=== PATIENT | female | born 1980 | race Caucasian/White ===

== ENCOUNTER 2016-12-26 20:37 | Emergency (ER) | payer SELFPAY ==
[2016-12-26] MEDS ORDERED: HYDROCODONE/ACETAMINOPHEN 5-325 MG TABLET PO ONE (21:53)
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
[2016-12-26] MEDS ORDERED: HYDROCODONE/ACETAMINOPHEN 5-325 MG 6 TAB/DSPK PO PRN (22:40)
[2016-12-26 22:50] VITALS: BP 98/60
== END 2016-12-26 22:51 | disposition home or self-care (01) ==
LOC: ER 20:37
DX: R68.84 Jaw pain (principal); R22.0 Localized swelling, mass and lump, head; Y04.2XXA Assault by strike against or bumped into by another person, initial encounter; Y92.818 Other transport vehicle as the place of occurrence of the external cause
CPT/HCPCS: 70150; 99284

== ENCOUNTER 2017-05-23 09:59 | Emergency (ER) | payer SELFPAY ==
[2017-05-23] MEDS ORDERED: NORMAL SALINE 1000 ML 1,000 ML IV ONE (10:18)
[2017-05-23] MEDS ORDERED: METOCLOPRAMIDE HCL INJ/PF 10 MG/2 ML SDV IV ONE (10:18)
--- NOTE | 2017-05-23 10:20 | ER Document Report ---
ED Medical Screen (RME) - General Chief Complaint: Vag Bleeding, +preg <12wks Stated Complaint: VAGINAL BLEEDING Time Seen by Provider: 05/23/17 10:17 Notes: Patient states that her last menstrual period was 04/05/2017. She states she has had a positive test at home. She states starting 2 days ago she is having vaginal spotting and some mild cramping and intractable vomiting. TRAVEL OUTSIDE OF THE [place] IN LAST 30 DAYS: No - Related Data Allergies/Adverse Reactions: No Known Allergies Allergy (Verified 05/23/17 10:01) Home Medications: Current Home Medications Vit Calc,Iron,Folic [ Vitamins] 1 tab PO DAILY 05/23/17 [ History] Past Medical History - General Last Menstrual Period: 04/05/17 - Social History Frequency of alcohol use: None Drug Abuse: None Renal/ Medical History: Reports: Hx Kidney Stones. Denies: Hx Peritoneal Dialysis Past Surgical History: Reports: Hx Kidney (Renal Surgery) - stones - Immunizations Hx Diphtheria, Pertussis, Tetanus Vaccination: Yes Physical Exam - Vital signs Vitals: Temp Pulse Resp BP Pulse Ox 98.2 F 103 H 14 123/75 100 05/23/17 10:05 05/23/17 10:05 05/23/17 10:05 05/23/17 10:05 05/23/17 10:05 Course - Vital Signs Vital signs: Temp Pulse Resp BP Pulse Ox 98.2 F 103 H 14 123/75 100 05/23/17 10:05 05/23/17 10:05 05/23/17 10:05 05/23/17 10:05 05/23/17 10:05
[2017-05-23 10:52] LABS: APPEARANCE,URINE SLIGHTLY-CLOUDY; BILIRUBIN,URINE NEGATIVE (NEGATIVE); GLUCOSE, URINE NEGATIVE (NEGATIVE); KETONES,URINE 80 mg/dL (NEGATIVE); LEUKOCYTE ESTERASE,URINE NEGATIVE (NEGATIVE); NITRITE,URINE NEGATIVE (NEGATIVE); PROTEIN,URINE 30 mg/dL (NEGATIVE); URINE SPECIFIC GRAVITY 1.025; UROBILINOGEN,URINE NEGATIVE mg/dL (<2.0)
[2017-05-23 11:11] LABS: ABSOLUTE LYMPHOCYTES (AUTO) 1.5 10^3/uL (0.5-4.7); ABSOLUTE MONOCYTES (AUTO) 0.4 10^3/uL (0.1-1.4); ABSOLUTE NEUT (AUTO) 10.2 10^3/uL (1.7-8.2); BASOPHILS % (AUTO) 0.3 % (0-2); EOSINOPHILS % (AUTO) 0.1 % (0-6); HEMATOCRIT 38.7 % (36.0-47.0); HEMOGLOBIN 12.8 g/dL (12.0-15.5); HGB HCT DIFFERENCE -0.3; LYMPHOCYTES % (AUTO) 12.2 % (13-45); MEAN CORPUSCULAR HEMOGLOBIN 30.5 pg (27.0-33.4); MEAN CORPUSCULAR HGB CONC 33.2 g/dL (32.0-36.0); MEAN CORPUSCULAR VOLUME 92 fl (80-97); RED BLOOD COUNT 4.21 10^6/uL (3.72-5.28); RED CELL DISTRIBUTION WIDTH 14.1 % (11.5-14.0); SEGMENTED NEUTROPHILS % (AUTO) 84.4 % (42-78)
[2017-05-23 11:34] LABS: ALANINE AMINOTRANSFERASE 66 U/L (9-52); ALBUMIN 4.6 g/dL (3.5-5.0); ALKALINE PHOSPHATASE 76 U/L (38-126); ANION GAP 19 (5-19); ASPARTATE AMINO TRANSFERASE 22 U/L (14-36); BILIRUBIN,DIRECT 0.2 mg/dL (0.0-0.4); BILIRUBIN,TOTAL 0.9 mg/dL (0.2-1.3); BLOOD UREA NITROGEN 17 mg/dL (7-20); CALCIUM 10.1 mg/dL (8.4-10.2); CARBON DIOXIDE 20 mmol/L (22-30); CHLORIDE 100 mmol/L (98-107); CREATININE RESULT 0.72 mg/dL (0.52-1.25); GLUCOSE 88 mg/dL (75-110); POTASSIUM 3.9 mmol/L (3.6-5.0); SODIUM 138.5 mmol/L (137-145); TOTAL PROTEIN 7.3 g/dL (6.3-8.2)
--- NOTE | 2017-05-23 11:43 | RADIOLOGY REPORT (SQ) ---
EXAM DESCRIPTION: U/S OB TRANSVAG W/DOPPLER COMPLETED DATE/TIME: 05/23/2017 11:31 am REASON FOR STUDY: +preg vag bleeding COMPARISON: None. TECHNIQUE: Transvaginal static and realtime grayscale images acquired of the pelvis. Additional bakari cted spectral and color Doppler images recorded. All images stored on PACs. bHCG: Not applicable. LIMITATIONS: None. FINDINGS: FETUS: Living intrauterine . EGA: 6 weeks 0 days ISMA: 01/16/2018 FHR: 112 beats per minute. SUBCHORIONIC BLEED: No SIZE OF BLEED: Not applicable. UTERUS: No masses. No anomalies. CERVICAL LENGTH: 3.7 cm. Closed. RIGHT ADNEXA: 3.9 x 2.8 x 2.7 cm. Normal vascular flow. There is a 2.2 x 2 x 2 cm cyst. No adnexal free fluid. No adnexal masses. LEFT ADNEXA: Left ovary not seen. No adnexal free fluid. No adnexal masses. FREE FLUID: None. OTHER: No other significant finding. IMPRESSION: LIVING INTRAUTERINE . EGA 6 weeks 0 days. Follow-up as clinically indicated. Trimester of : First - 0 to 13 weeks. TECHNICAL DOCUMENTATION: JOB ID: [id number] [employer]- All Rights Reserved
--- NOTE | 2017-05-23 12:54 | ER Document Report ---
ED General - General Chief Complaint: Vag Bleeding, +preg <12wks Stated Complaint: VAGINAL BLEEDING Time Seen by Provider: 05/23/17 10:17 TRAVEL OUTSIDE OF THE [place] IN LAST 30 DAYS: No - HPI Patient complains to provider of: Vaginal bleeding Notes: Patient coming in for vaginal bleeding. Patient is a G6 with 2 abortions 3 kids at home. Patient states vaginal bleeding light spotting over the last few days. Denies any fevers chills nausea vomiting. States lower abdominal pain and lower abdominal cramping. Patient states has not had a confirmed IUP at this time home test was positive.States multiple bouts of nausea vomiting as well. - Related Data Allergies/Adverse Reactions: No Known Allergies Allergy (Verified 05/23/17 10:01) Home Medications: Current Home Medications Vit Calc,Iron,Folic [ Vitamins] 1 tab PO DAILY 05/23/17 [ History] Past Medical History - General Last Menstrual Period: 04/05/17 - Social History Smoking Status: Current Every Day Smoker Frequency of alcohol use: None Drug Abuse: None Family History: Reviewed & Not Pertinent Patient has suicidal ideation: No Patient has homicidal ideation: No Renal/ Medical History: Reports: Hx Kidney Stones. Denies: Hx Peritoneal Dialysis Past Surgical History: Reports: Hx Kidney (Renal Surgery) - stones - Immunizations Hx Diphtheria, Pertussis, Tetanus Vaccination: Yes Hx Pneumococcal Vaccination: 06/03/10 Review of Systems - Review of Systems Constitutional: No symptoms reported EENT: No symptoms reported Cardiovascular: No symptoms reported Respiratory: No symptoms reported Gastrointestinal: No symptoms reported Genitourinary: No symptoms reported Female Genitourinary: Vaginal bleeding Musculoskeletal: No symptoms reported Skin: No symptoms reported Hematologic/Lymphatic: No symptoms reported Neurological/Psychological: No symptoms reported -: Yes All other systems reviewed and negative Physical Exam - Vital signs Vitals: Temp Pulse Resp BP Pulse Ox 98.2 F 103 H 14 123/75 100 05/23/17 10:05 05/23/17 10:05 05/23/17 10:05 05/23/17 10:05 05/23/17 10:05 Interpretation: Normal - General General appearance: Appears well, Alert - HEENT Head: Normocephalic, Atraumatic Eyes: Normal Pupils: PERRL - Respiratory Respiratory status: No respiratory distress Chest status: Nontender Breath sounds: Normal Chest palpation: Normal - Cardiovascular Rhythm: Regular Heart sounds: Normal auscultation Murmur: No - Abdominal Inspection: Normal Distension: No distension Bowel sounds: Normal Tenderness: Nontender Organomegaly: No organomegaly - Back Back: Normal, Nontender - Extremities General upper extremity: Normal inspection, Nontender, Normal color, Normal ROM , Normal temperature General lower extremity: Normal inspection, Nontender, Normal color, Normal ROM , Normal temperature, Normal weight bearing. No: Josiane's sign - Neurological Neuro grossly intact: Yes Cognition: Normal Orientation: AAOx4 Calcium Coma Scale Eye Opening: Spontaneous Paddy Coma Scale Verbal: Oriented Paddy Coma Scale Motor: Obeys Commands Calcium Coma Scale Total: 15 Speech: Normal Motor strength normal: LUE, RUE, LLE, RLE Sensory: Normal - Psychological Associated symptoms: Normal affect, Normal mood - Skin Skin Temperature: Warm Skin Moisture: Dry Skin Color: Normal Course - Re-evaluation Re-evalutation: 05/23/17 17:21 Ultrasound confirmed IUP. Patient was encouraged follow-up in 48-72 hours for repeat beta hCGs. Patient states understanding was given nausea and vomiting instructions - Vital Signs Vital signs: Temp Pulse Resp BP Pulse Ox 98.8 F 84 14 109/65 100 05/23/17 13:06 05/23/17 13:06 05/23/17 10:05 05/23/17 13:06 05/23/17 13:06 - Laboratory Result Diagrams: 05/23/17 10:47 05/23/17 10:47 Laboratory results interpreted by me: 05/23/17 05/23/17 05/23/17 10:26 10:47 10:47 WBC 12.0 H RDW 14.1 H Seg Neutrophils % 84.4 H Lymphocytes % 12.2 L Absolute Neutrophils 10.2 H Carbon Dioxide 20 L ALT 66 H Beta HCG, Quant 33235.00 H Urine Protein 30 H Urine Ketones 80 H Urine Blood MODERATE H Discharge - Discharge Clinical Impression: vaginal bleeding during , Nausea and vomiting during Condition: Poor Disposition: HOME, SELF-CARE Instructions: Bleeding During Early ([facility]), Reglan (ON LICENSE OF [facility]) Additional Instructions: Please follow-up in the next 48-72 hours for repeat blood draw. I recommended she continue to follow up with the health department or [facility]. Continue your vitamins. He may also take the Reglan provided for nausea. He may also use the other medication as below. For nausea and vomiting during I recomment: Start with 10-12.5 mg of pyridoxine (vitamin B6) three times a day for 2 days. If not fully effective, Increase to 12.5 mg of pyridoxine four times a day for 2 days. If not fully effective, Increase to 25 mg of pyridoxine three times a day for 2 days. If not fully effective, Continue 25 mg pyridoxine 3 times a day, and add 12.5 mg of doxylamine before bedtime each day for 2 days. If not fully effective, Continue 25 mg pyridoxine 3 times a day, and take 12.5 mg of doxylamine twice a day. If not fully effective, Continue 25 mg pyridoxine 3 times a day, and take 12.5 mg of doxylamine three times a day. If not fully effective, Continue 25 mg pyridoxine 3 times a day, and 12.5 mg of doxylamine 3 times a day , while adding Emetrol, one to two tablespoons (15-30 cc) taken once or twice a day as needed. (Emetrol is an [id number] mixture of sugar syrups and phosphoric acid [phosphorylated carbohydrate solution]) that acts by soothing the actual wall of the gastrointestinal tract). If not fully effective, Consult with your doctor. Prescriptions: Metoclopramide HCl [Reglan] 5 mg PO Q6 #30 tablet Forms: Follow-Up Laboratory Testing, Return to Work
[2017-05-23 13:08] VITALS: BP 109/65
== END 2017-05-23 13:08 | disposition home or self-care (01) ==
LOC: ER 09:59
DX: O46.91 Antepartum hemorrhage, unspecified, first trimester (principal); R10.30 Lower abdominal pain, unspecified; R11.2 Nausea with vomiting, unspecified; F17.200 Nicotine dependence, unspecified, uncomplicated; Z3A.00 Weeks of gestation of pregnancy not specified
CPT/HCPCS: 99284; 96361; 96374; 86900; 86901; 36415; 84702; 85025; 80053; 81001; 76817; 93976; J2765; J7030

== ENCOUNTER 2017-09-16 08:48 | Observation (INO) | payer MEDICAID ==
[2017-09-16] MEDS ORDERED: RINGERS SOLUTION,LACTATED 1,000 ML IV PRN (09:20)
[2017-09-16] MEDS ORDERED: NALBUPHINE HCL INJ 10 MG/1 ML AMPULE INJ ONE (09:20)
[2017-09-16] MEDS ORDERED: NALBUPHINE HCL INJ 10 MG/1 ML AMPULE ONE (09:25)
[2017-09-16 09:31] LABS: APPEARANCE,URINE SLIGHTLY-CLOUDY; BILIRUBIN,URINE NEGATIVE (NEGATIVE); COLOR,URINE YELLOW; GLUCOSE, URINE NEGATIVE (NEGATIVE); KETONES,URINE NEGATIVE (NEGATIVE); LEUKOCYTE ESTERASE,URINE NEGATIVE (NEGATIVE); NITRITE,URINE NEGATIVE (NEGATIVE); PROTEIN,URINE NEGATIVE (NEGATIVE); URINE SPECIFIC GRAVITY 1.012; UROBILINOGEN,URINE NEGATIVE mg/dL (<2.0)
[2017-09-16 09:45] LABS: URINE AMPHETAMINES SCREEN NEGATIVE; URINE BARBITURATES SCREEN NEGATIVE; URINE BENZODIAZEPINES SCREEN NEGATIVE; URINE COCAINE SCREEN NEGATIVE; URINE METHADONE SCREEN NEGATIVE; URINE PHENCYCLIDINE SCREEN NEGATIVE
[2017-09-16] MEDS ORDERED: ONDANSETRON HCL INJ/PF 4 MG/2 ML SDV IV ONE (09:48)
[2017-09-16] MEDS ORDERED: CEFTRIAXONE INJ 1000 MG VIAL ONE (09:50)
[2017-09-16] MEDS ORDERED: ONDANSETRON HCL INJ/PF 4 MG/2 ML SDV ONE (09:53)
[2017-09-16 09:55] LABS: URINE MARIJUANA (THC) SCREEN UNCONFIRMED POSITIVE
[2017-09-16] MEDS ORDERED: CEFTRIAXONE 1 GM/D5W RTU 1 GM/50 ML RTUPB IV SCH (10:00)
--- NOTE | 2017-09-16 10:04 | L&D Progress Notes ---
PROGRESS NOTES Datetime Report Generated by CPN: 09/16/2017 10:03 PROGRESS NOTE Comment: pt came in for pain in back since last night, hx of kidney stone and pyelo, + left flank pain, nauseated, vomiting, + FHT denies fever, no bleeding, no leaking of fluid, denies SOB, lungs clear DrCarmen Choe notified, Zofran, Rocephin, IV fluids, sono to check CL, GC and Chlamydia, CBC, Metabolic panel, Nubain 10 IV for pain, urine culture SIGNATURE SIGNATURE: [id number] Assignment: Ruth Choe MD Signature: with User ID: [email or web address] : with User ID: [email or web address]
[2017-09-16 10:22] LABS: ABSOLUTE EOSINOPHILS # (AUTO) 0.2 10^3/uL (0.0-0.6); ABSOLUTE LYMPHOCYTES (AUTO) 1.6 10^3/uL (0.5-4.7); ABSOLUTE MONOCYTES (AUTO) 0.7 10^3/uL (0.1-1.4); ABSOLUTE NEUT (AUTO) 9.2 10^3/uL (1.7-8.2); BASOPHILS % (AUTO) 0.3 % (0-2); EOSINOPHILS % (AUTO) 1.4 % (0-6); HEMATOCRIT 30.9 % (36.0-47.0); HEMOGLOBIN 10.2 g/dL (12.0-15.5); LYMPHOCYTES % (AUTO) 13.8 % (13-45); MEAN CORPUSCULAR HGB CONC 32.9 g/dL (32.0-36.0); MEAN CORPUSCULAR VOLUME 94 fl (80-97); MONOCYTES % (AUTO) 5.7 % (3-13); PLATELET COUNT 289 10^3/uL (150-450); RED BLOOD COUNT 3.28 10^6/uL (3.72-5.28); SEGMENTED NEUTROPHILS % (AUTO) 78.8 % (42-78); TOTAL CELLS COUNTED % (AUTO) 100 %; WHITE BLOOD COUNT 11.7 10^3/uL (4.0-10.5)
[2017-09-16 10:34] LABS: ALANINE AMINOTRANSFERASE 25 U/L (9-52); ALBUMIN 3.1 g/dL (3.5-5.0); ALKALINE PHOSPHATASE 67 U/L (38-126); ANION GAP 8 (5-19); ASPARTATE AMINO TRANSFERASE 14 U/L (14-36); BILIRUBIN,DIRECT 0.1 mg/dL (0.0-0.4); BILIRUBIN,TOTAL 0.2 mg/dL (0.2-1.3); BLOOD UREA NITROGEN 10 mg/dL (7-20); CALCIUM 9.1 mg/dL (8.4-10.2); CARBON DIOXIDE 23 mmol/L (22-30); CHLORIDE 108 mmol/L (98-107); GLUCOSE 118 mg/dL (75-110); POTASSIUM 4.2 mmol/L (3.6-5.0); TOTAL PROTEIN 5.7 g/dL (6.3-8.2)
[2017-09-16] MEDS ORDERED: MORPHINE SULFATE 10 MG/ML INJ IV ONE (10:35)
[2017-09-16] MEDS ORDERED: MORPHINE SULFATE 10 MG/ML INJ ONE (10:35)
[2017-09-16] MEDS ORDERED: PROMETHAZINE HCL INJ 25 MG/1 ML VIAL ONE (10:35)
[2017-09-16] MEDS ORDERED: PROMETHAZINE HCL INJ 25 MG/1 ML VIAL IV ONE (10:36)
--- NOTE | 2017-09-16 10:42 | L&D Progress Notes ---
PROGRESS NOTES Datetime Report Generated by CPN: 09/16/2017 10:42 PROGRESS NOTE Comment: C/O of pain 5/5, Dr. Choe notified, Morphine 5 and Phenergan 12.5 IV x 1, + TCH and + Opioids, took Percocet this am and BF smokes TCH WBC 11.7,m H_H 30.9/10.2 FETUS C SIGNATURE: [id number] Assignment: Ruth Choe MD Signature: with User ID: [email or web address] : with User ID: [email or web address]
--- NOTE | 2017-09-16 11:49 | RADIOLOGY REPORT (SQ) ---
EXAM DESCRIPTION: U/S OB LIMITED COMPLETED DATE/TIME: 09/16/2017 11:35 am REASON FOR STUDY: iup 23+3 abdominal cramping COMPARISON: None. TECHNIQUE: Limited transabdominal grayscale ultrasound for evaluation of specific requested obstetri diane parameters. LIMITATIONS: The cervix could not be adequately visualized with transabdominal technique. Further i maging with transvaginal probe could not be performed due to patient discomfort. FINDINGS: Cervix appears closed although cervical length could not be measured. IMPRESSION: FINDINGS ABOVE. LIMITED STUDY. TECHNICAL DOCUMENTATION: JOB ID: [id number] [employer]- All Rights Reserved Reading location - IP/workstation name: [email or web address]
--- NOTE | 2017-09-16 11:50 | RADIOLOGY REPORT (SQ) ---
EXAM DESCRIPTION: U/S RETROPERITON (RENAL/AORTA) COMPLETED DATE/TIME: 09/16/2017 11:35 am REASON FOR STUDY: iup 23.3 wks left flank pain h/o kidney stones COMPARISON: None. TECHNIQUE: Dynamic and static grayscale images acquired of the kidneys and bladder and recorded on P ACS. Additional selected color Doppler and spectral images recorded. LIMITATIONS: None. FINDINGS: RIGHT KIDNEY: Normal size. Normal echogenicity. No solid or suspicious masses. No h ydronephrosis. No calcifications. LEFT KIDNEY: Normal size. Normal echogenicity. No solid or suspicious masses. Hydronephrosis. Renal pelvis measures 14.5 mm. No calcifications. BLADDER: Not distended. OTHER FINDINGS: No other significant finding. IMPRESSION: HYDRONEPHROSIS OF THE LEFT KIDNEY. COMMENT: The degree of renal pelvicalyceal dilation is correlated with the patient's current stage o f . TECHNICAL DOCUMENTATION: JOB ID: [id number] [employer]- All Rights Reserved Reading location - IP/workstation name: [email or web address]
[2017-09-16 12:04] LABS: CHLAM PCR NOT DETECTED (NOT DETECT); GON PCR NOT DETECTED (NOT DETECT)
[2017-09-16] MEDS ORDERED: RINGERS SOLUTION,LACTATED 1,000 ML IV ONE (12:06)
--- NOTE | 2017-09-16 12:25 | PDOC H&P ---
History of Present Illness Admission Date/PCP: VICK NICHOLAS MD 09-16-17 History of Present Illness: PERCY KING is a 37 year old female who presents to labor and delivery @ 23.3 weeks with complaint of nausea and vomiting, left flank pain since 299, no leaking of fluid, no vaginal bleeding Past Medical History LMP: 04-05-17 Gynecological Infection: No Obstetrical History: none 1 Baby 1 Male Year: , Delivery: Spontaneous Vaginal Delivery 2 Spontaneous Year: Delivery: Other 3 Baby 2 Female Year: Delivery: Spontaneous Vaginal Delivery 4 Terminated Year: Delivery: Curettage - EAB 5 Male Year: Delivery: Spontaneous Vaginal Delivery 6 Spontaneous Year: Delivery: Curettage Past Surgical History Past Surgical History: Reports: Other - D&C x 2 Ureter stent removed in the Social History Information Source: Patient Lives with: Spouse/Significant other Smoking Status: Current Every Day Smoker Frequency of Alcohol Use: Occasional Hx Recreational Drug Use: Yes Drugs: Marijuana Hx Prescription Drug Abuse: No Family History Family History: Reviewed & Not Pertinent Parental Family History Reviewed: Yes Children Family History Reviewed: Yes Sibling(s) Family History Reviewed.: Yes Medication/Allergy Home Medications: Vit Calc,Iron,Folic [ Vitamins] 1 tab PO DAILY 05/23/17 Allergies/Adverse Reactions: No Known Allergies Allergy (Verified 09/16/17 09:16) Physical Exam - Physical Exam Vital Signs: Intake & Output 09/15/17 09/16/17 09/17/17 06:59 06:59 06:59 Weight 59.1 kg General appearance: PRESENT: mild distress, well-nourished Head exam: PRESENT: atraumatic, normocephalic Eye exam: PRESENT: other Ear exam: PRESENT: other Teeth exam: PRESENT: other Throat exam: PRESENT: other Neck exam: PRESENT: other Respiratory exam: PRESENT: unlabored Cardiovascular exam: PRESENT: RRR Pulses: PRESENT: other Vascular exam: PRESENT: other GI/Abdominal exam: PRESENT: soft, other Rectal exam: PRESENT: deferred Gentrourinary exam: PRESENT: other Extremities exam: PRESENT: other Musculoskeletal exam: PRESENT: ambulatory Neurological exam: PRESENT: alert, oriented to person, oriented to place Psychiatric exam: PRESENT: other Focused psych exam: PRESENT: other Skin exam: PRESENT: normal color, warm - Obstetrical Exam External Genitalia: not examined Vagina: not examined Adhexa: not examined Result Laboratory Results: 09/16/17 09:51 09/16/17 09:51 09/16/17 09/16/17 09/16/17 09:02 09:51 09:51 WBC 11.7 H RBC 3.28 L Hgb 10.2 L Hct 30.9 L MCV 94 MCH 31.0 MCHC 32.9 RDW 13.0 Plt Count 289 Seg Neutrophils % 78.8 H Lymphocytes % 13.8 Monocytes % 5.7 Eosinophils % 1.4 Basophils % 0.3 Absolute Neutrophils 9.2 H Absolute Lymphocytes 1.6 Absolute Monocytes 0.7 Absolute Eosinophils 0.2 Absolute Basophils 0.0 Sodium 139.0 Potassium 4.2 Chloride 108 H Carbon Dioxide 23 Anion Gap 8 BUN 10 Creatinine 0.57 Est GFR ( Amer) > 60 Est GFR (Non-Af Amer) > 60 Glucose 118 H Calcium 9.1 Total Bilirubin 0.2 AST 14 ALT 25 Alkaline Phosphatase 67 Total Protein 5.7 L Albumin 3.1 L Urine Color YELLOW Urine Appearance SLIGHTLY-CLOUDY Urine pH 6.0 Ur Specific [place] 1.012 Urine Protein NEGATIVE Urine Glucose (UA) NEGATIVE Urine Ketones NEGATIVE Urine Blood LARGE H Urine Nitrite NEGATIVE Ur Leukocyte Esterase NEGATIVE Urine WBC (Auto) 4 Urine RBC (Auto) >182 Impressions: Obstetrics Ultrasound 09/16/17 09:46 IMPRESSION: FINDINGS ABOVE. LIMITED STUDY. Renal Ultrasound 09/16/17 10:51 IMPRESSION: HYDRONEPHROSIS OF THE LEFT KIDNEY. Assessment & Plan - Diagnosis (1) Pyelonephritis Is this a current diagnosis for this admission?: Yes - Plan Summary Plan Summary: Seen by Dr. Nicholas Admit for observation, pain medication 23.3 weeks
[2017-09-16] MEDS: OXYCODONE-ACETAMINOPHEN 5-325 MG TABLET PO PRN ×3 (12:37→23:52)
[2017-09-16] MEDS ORDERED: OXYCODONE-ACETAMINOPHEN 5-325 MG TABLET ONE (12:38)
[2017-09-16] MEDS ORDERED: PRENATAL VITAMIN W DHA CAPSULE PO SCH (18:00)
[2017-09-17 04:52] VITALS: BP 99/58
[2017-09-17] MEDS: OXYCODONE-ACETAMINOPHEN 5-325 MG TABLET PO PRN (08:19)
--- NOTE | 2017-09-17 09:17 | PDOC PROGRESS REPORT ---
Subjective Progress Note for:: 09/17/17 Reason For Visit: Physical Exam - Physical Exam Vital Signs: Temp Pulse Resp BP Pulse Ox 98.0 F 65 18 99/58 L 96 09/17/17 04:00 09/17/17 04:00 09/17/17 04:00 09/17/17 04:00 09/17/17 04:00 Intake & Output 09/16/17 09/17/17 09/18/17 06:59 06:59 06:59 Weight 59.1 kg General appearance: PRESENT: no acute distress Respiratory exam: PRESENT: clear to auscultation mariajose - Obstetrical Exam External Genitalia: not examined Vagina: not examined Adhexa: not examined Result Laboratory Results: 09/16/17 09:51 09/16/17 09:51 09/16/17 09/16/17 09/16/17 09:02 09:51 09:51 WBC 11.7 H RBC 3.28 L Hgb 10.2 L Hct 30.9 L MCV 94 MCH 31.0 MCHC 32.9 RDW 13.0 Plt Count 289 Seg Neutrophils % 78.8 H Lymphocytes % 13.8 Monocytes % 5.7 Eosinophils % 1.4 Basophils % 0.3 Absolute Neutrophils 9.2 H Absolute Lymphocytes 1.6 Absolute Monocytes 0.7 Absolute Eosinophils 0.2 Absolute Basophils 0.0 Sodium 139.0 Potassium 4.2 Chloride 108 H Carbon Dioxide 23 Anion Gap 8 BUN 10 Creatinine 0.57 Est GFR ( Amer) > 60 Est GFR (Non-Af Amer) > 60 Glucose 118 H Calcium 9.1 Total Bilirubin 0.2 AST 14 ALT 25 Alkaline Phosphatase 67 Total Protein 5.7 L Albumin 3.1 L Urine Color YELLOW Urine Appearance SLIGHTLY-CLOUDY Urine pH 6.0 Ur Specific [place] 1.012 Urine Protein NEGATIVE Urine Glucose (UA) NEGATIVE Urine Ketones NEGATIVE Urine Blood LARGE H Urine Nitrite NEGATIVE Ur Leukocyte Esterase NEGATIVE Urine WBC (Auto) 4 Urine RBC (Auto) >182 Impressions: Obstetrics Ultrasound 09/16/17 09:46 IMPRESSION: FINDINGS ABOVE. LIMITED STUDY. Renal Ultrasound 09/16/17 10:51 IMPRESSION: HYDRONEPHROSIS OF THE LEFT KIDNEY. Assessment & Plan - Diagnosis (1) Pyelonephritis Is this a current diagnosis for this admission?: Yes - Time Time Spent with patient: 15-24 minutes Anticipated discharge: Home - Plan Summary Plan Summary: KARIME
--- NOTE | 2017-09-17 09:21 | PDOC DISCHARGE SUMMARY ---
General - Admit/Disc Date/PCP Admission Date/Primary Care Provider: 09/16/17 12:15 VICK NICHOLAS MD Discharge Date: 09/17/17 - Discharge Diagnosis (1) Pyelonephritis Is this a current diagnosis for this admission?: Yes - Additional Information Discharge Diet: As Tolerated Discharge Activity: Activity As Tolerated Home Medications: Vit Calc,Iron,Folic [ Vitamins] 1 tab PO DAILY 05/23/17 History of Present Illness Patient complains of: left flanl pain and lower abd pain History of Present Illness: PERCY KING is a 37 year old female Hospital Course Hospital Course: pt remained afebrile and US neg On day on of discharge pt is afebrile and tolerating regular diet Physical Exam - Physical Exam Vital Signs: Temp Pulse Resp BP Pulse Ox 98.0 F 65 18 99/58 L 96 09/17/17 04:00 09/17/17 04:00 09/17/17 04:00 09/17/17 04:00 09/17/17 04:00 Intake & Output 09/16/17 09/17/17 09/18/17 06:59 06:59 06:59 Weight 59.1 kg General appearance: PRESENT: no acute distress Respiratory exam: PRESENT: chest wall tenderness GI/Abdominal exam: PRESENT: soft - Obstetrical Exam External Genitalia: not examined Vagina: not examined Adhexa: not examined Result Laboratory Results: 09/16/17 09:51 09/16/17 09:51 09/16/17 09/16/17 09/16/17 09:02 09:51 09:51 WBC 11.7 H RBC 3.28 L Hgb 10.2 L Hct 30.9 L MCV 94 MCH 31.0 MCHC 32.9 RDW 13.0 Plt Count 289 Seg Neutrophils % 78.8 H Lymphocytes % 13.8 Monocytes % 5.7 Eosinophils % 1.4 Basophils % 0.3 Absolute Neutrophils 9.2 H Absolute Lymphocytes 1.6 Absolute Monocytes 0.7 Absolute Eosinophils 0.2 Absolute Basophils 0.0 Sodium 139.0 Potassium 4.2 Chloride 108 H Carbon Dioxide 23 Anion Gap 8 BUN 10 Creatinine 0.57 Est GFR ( Amer) > 60 Est GFR (Non-Af Amer) > 60 Glucose 118 H Calcium 9.1 Total Bilirubin 0.2 AST 14 ALT 25 Alkaline Phosphatase 67 Total Protein 5.7 L Albumin 3.1 L Urine Color YELLOW Urine Appearance SLIGHTLY-CLOUDY Urine pH 6.0 Ur Specific [place] 1.012 Urine Protein NEGATIVE Urine Glucose (UA) NEGATIVE Urine Ketones NEGATIVE Urine Blood LARGE H Urine Nitrite NEGATIVE Ur Leukocyte Esterase NEGATIVE Urine WBC (Auto) 4 Urine RBC (Auto) >182 Impressions: Obstetrics Ultrasound 09/16/17 09:46 IMPRESSION: FINDINGS ABOVE. LIMITED STUDY. Renal Ultrasound 09/16/17 10:51 IMPRESSION: HYDRONEPHROSIS OF THE LEFT KIDNEY. Plan Time Spent: Less than 30 Minutes
[2017-09-17] MEDS ORDERED: (PENDING PHARMACY ID) (Prenatal Vit Calc,Iron,Folic [Prenatal Vitamins] 1 TAB) PO SCH (10:00)
[2017-09-17] MEDS ORDERED: CEFTRIAXONE SODIUM 1,000 MG in NORMAL SALINE 100 ML IV SCH (10:00)
--- NOTE | 2017-09-17 13:06 | Physician Advisory Note ---
Physician Advisor ProgressNote .: Pursuant to the plan for [facility], I have reviewed the medical record for this patient. Physician Advisor Statement: Please, whenever documenting pyelo, state whether "Acute" or "Chronic", so coders can code with appropriate specificity of dx. Thanks! CK
[2017-09-24 07:11] LABS: CANNABINOID CONFIRMATION UR Positive (.)
== END 2017-09-17 10:00 | disposition home or self-care (01) ==
LOC: LC 08:48 → LR 12:15 → 2S 13:02
PROVIDERS: ADMIT Obstetrics & Gynecology; ATTEND Obstetrics & Gynecology
DX: O23.00 Infections of kidney in pregnancy, unspecified trimester (principal); O99.332 Smoking (tobacco) complicating pregnancy, second trimester; Z3A.23 23 weeks gestation of pregnancy; Z98.890 Other specified postprocedural states; Z87.442 Personal history of urinary calculi
CPT/HCPCS: 36415; 87086; 85025; 80053; 81001; 80307; 87491; 87591; 80361; 76770; 76815; G0378 ×2; G0379; G0480 ×2; J2270; J2300; J2550; J0696; J2405; J3490

== ENCOUNTER 2017-12-30 07:46 | Inpatient (IN) | payer MEDICAID ==
[2017-12-30 08:41] LABS: APPEARANCE,URINE SLIGHTLY-CLOUDY; BILIRUBIN,URINE NEGATIVE (NEGATIVE); COLOR,URINE YELLOW; GLUCOSE, URINE >=500 mg/dL (NEGATIVE); KETONES,URINE TRACE mg/dL (NEGATIVE); LEUKOCYTE ESTERASE,URINE NEGATIVE (NEGATIVE); NITRITE,URINE NEGATIVE (NEGATIVE); PROTEIN,URINE NEGATIVE (NEGATIVE); URINE SPECIFIC GRAVITY 1.027; UROBILINOGEN,URINE NEGATIVE mg/dL (<2.0)
[2017-12-30 08:54] LABS: URINE AMPHETAMINES SCREEN NEGATIVE; URINE BARBITURATES SCREEN NEGATIVE; URINE BENZODIAZEPINES SCREEN NEGATIVE; URINE COCAINE SCREEN NEGATIVE; URINE MARIJUANA (THC) SCREEN NEGATIVE; URINE METHADONE SCREEN NEGATIVE; URINE PHENCYCLIDINE SCREEN NEGATIVE
[2017-12-30] MEDS ORDERED: RINGERS SOLUTION,LACTATED 1,000 ML IV ONE (09:46)
[2017-12-30] MEDS ORDERED: PENICILLIN G POTASSIUM 5,000,000 UNIT in DEXTROSE 5%-WATER 100 ML IV ONE (11:09)
[2017-12-30] MEDS ORDERED: SUCCINYLCHOLINE CHLORIDE INJ 200 MG/10 ML VIAL ONE (11:27)
[2017-12-30] MEDS: RINGERS SOLUTION,LACTATED 1,000 ML IV PRN ×2 (11:44→23:45)
[2017-12-30] MEDS ORDERED: ONDANSETRON HCL INJ/PF 4 MG/2 ML SDV ONE (11:56)
[2017-12-30] MEDS ORDERED: LIDOCAINE 1% INJ-PF (10 MG/ML) 30 ML SDV ONE (12:14)
[2017-12-30] MEDS ORDERED: MISOPROSTOL 0.2 MG TABLET ONE ×2 (12:14→13:39)
[2017-12-30] MEDS ORDERED: OXYTOCIN/NORMAL SALINE 20 UNIT/1,000 ML RTUINJ ONE ×2 (12:14→13:38)
[2017-12-30] MEDS ORDERED: AMPICILLIN SODIUM 2 GM in NORMAL SALINE 100 ML IV ONE (12:18)
[2017-12-30] MEDS ORDERED: ONDANSETRON HCL INJ/PF 4 MG/2 ML SDV IV ONE (12:30)
[2017-12-30 12:53] LABS: HEMATOCRIT 32.3 % (36.0-47.0); HEMOGLOBIN 10.9 g/dL (12.0-15.5); MEAN CORPUSCULAR HEMOGLOBIN 30.3 pg (27.0-33.4); MEAN CORPUSCULAR HGB CONC 33.8 g/dL (32.0-36.0); MEAN CORPUSCULAR VOLUME 90 fl (80-97); PLATELET COUNT 276 10^3/uL (150-450); RED CELL DISTRIBUTION WIDTH 15.2 % (11.5-14.0); WHITE BLOOD COUNT 9.9 10^3/uL (4.0-10.5)
[2017-12-30] MEDS ORDERED: CITRIC ACID/SODIUM CITRATE ORAL SOLN 15 ML UDCUP ONE (13:25)
[2017-12-30] MEDS ORDERED: CEFAZOLIN 2 GM/D5W RTU 0 GM/0 ML RTUPB IV ONE (13:25)
[2017-12-30 13:26] LABS: CHLAM PCR NOT DETECTED (NOT DETECT); GON PCR NOT DETECTED (NOT DETECT)
[2017-12-30] MEDS ORDERED: MIDAZOLAM 2 MG/2 ML INJ ONE (13:32)
[2017-12-30] MEDS ORDERED: FENTANYL CITRATE INJ/PF 100 MCG/2 ML AMPUL ONE ×2 (13:32→13:48)
[2017-12-30] MEDS ORDERED: PROPOFOL INJ 200 MG/20 ML VIAL IV ONE (13:32)
[2017-12-30] MEDS ORDERED: MORPHINE SULFATE 10 MG/ML INJ ONE (13:38)
[2017-12-30] MEDS ORDERED: OXYTOCIN 10 UNIT/ML VIAL ONE (13:38)
[2017-12-30] MEDS ORDERED: ACETAMINOPHEN 1,000 MG/100 ML RTUPB IV ONE (13:49)
--- NOTE | 2017-12-30 14:57 | RADIOLOGY REPORT (SQ) ---
EXAM DESCRIPTION: KUB/ABDOMEN (SINGLE VIEW) COMPLETED DATE/TIME: 12/30/2017 2:50 pm REASON FOR STUDY: no count stat c/s COMPARISON: None. NUMBER OF VIEWS: One view. TECHNIQUE: Supine radiographic image of the abdomen acquired. LIMITATIONS: None. FINDINGS: BOWEL GAS PATTERN: Normal bowel gas pattern. No dilated loops. CALCIFICATIONS: No suspicious calcifications. SOFT TISSUES: No gross mass or suggestion of organomegaly. HARDWARE: Surgical tubal ligation clips, 2 located just above the right iliac crest and 2 overlying t he left iliac crest. Catheter in the bladder. No other hardware visualized. BONES: No acute fracture. No worrisome bone lesions. OTHER: No other significant finding. IMPRESSION: NO RADIOGRAPHIC EVIDENCE FOR ACUTE ABDOMINAL DISEASE. HARDWARE DESCRIBED. TECHNICAL DOCUMENTATION: JOB ID: [id number] [employer]- All Rights Reserved Reading location - IP/workstation name: [email or web address]
[2017-12-30] MEDS ORDERED: HYDROMORPHONE HCL INJ/PF 2 MG/ML AMPULE ONE (15:14)
[2017-12-30] MEDS ORDERED: MEASLES,MUMPS&RUBELLA VACC/PF 0.5 ML VIAL SUBCUT PRN (15:18)
[2017-12-30] MEDS ORDERED: ACETAMINOPHEN 325 MG TABLET PO PRN (15:18)
[2017-12-30] MEDS: HYDROMORPHONE HCL INJ/PF 2 MG/ML AMPULE IV PRN ×4 (15:18→22:14)
[2017-12-30] MEDS ORDERED: HYDROMORPHONE HCL INJ/PF 2 MG/ML AMPULE IV PRN (15:18)
[2017-12-30] MEDS ORDERED: OXYTOCIN/NORMAL SALINE 20 UNIT/1,000 ML RTUINJ IV PRN (15:18)
[2017-12-30] MEDS ORDERED: PROMETHAZINE HCL INJ 25 MG/1 ML VIAL IV PRN (15:18)
[2017-12-30] MEDS ORDERED: DIPH/PERTUSS(ACELL)/TETANUS VAC/PF 0.5 ML SYR (>=10YO) IM PRN (15:18)
--- NOTE | 2017-12-30 15:34 | Admission Physical ---
Datetime Report Generated by CPN: 12/30/2017 15:34 CURRENT ADMISSION Hx Assessment: The History has been Reviewed and is Current Chief Complaint: Uterine Contractions Indication for Induction: Not Applicable Admit Impression : Term, Intrauterine ; Active Labor; Obstetrical Complication Admit Impression- Other: non reassuring FHT tracing Admit Plan: Admit to Unit; Initiate Labor Protocol ALLERGIES Medication Allergies: No Medication Allergies: No Known Allergies (12/30/2017) Latex: No Latex Allergies Food Allergies: NONE Environmental Allergies: NONE OBSTETRICAL HISTORY EDC: 01/10/2018 00:00 : 7 Para: 3 Term: 3 : 0 SAB: 2 IAB: 1 Ectopic: 0 Livin Cesareans: 0 VBACs: 0 Multiple Births: 0 Gestational Diabetes: No Rh Sensitization: No Incompetent Cervix: No LB: No Infertility: No ART Treatment: No Uterine Anomaly: No IUGR: No Hx Previous C/S: No Macrosomia: No Hx Loss/Stillborn: No PIH: No Hx : No Placenta Previa/Abruption: No Depression/PP Depression: No PTL/PROM: No Post Hemorrhage: No Current Procedures: Ultrasound Obstetrical History Comments: G1 1997 SAB G2 2002 boy 40 wks G3 2002 EAB G4 2004 40 wks girl G5 2005 SAB G6 2008 39 wks boy G7 current SEE RECORDS Alcohol: No Marijuana : No Cocaine: No Other Illicit Drugs: Yes Cigarettes: Current Everyday Smoker. [id number] Cigarette Frequency: 5 - 10 per day Advised to Stop: Yes MEDICAL HISTORY Diabetes: No Blood Transfusion: No Pulmonary Disease (Asthma, TB): No Breast Disease: No Hypertension: No Rotor Balancer Surgery: No Heart Disease: No Hosp/Surgery: Yes Autoimmune Disorder: No Anesthetic Complications: No Kidney Disease: Yes Abnormal Pap Smear: No Neuro/Epilepsy: No Psychiatric Disorders: No Other Medical Diseases: No Hepatitis/Liver Disease: No Significant Family History: No Varicosities/Phlebitis: No Trauma/Violence : No Thyroid Dysfunction: No Medical History Comments: KIDNEY STONES _ UTI'S STENTS IN KIDNEY INFECTIOUS HISTORY Gonorrhea: No Genital Herpes: No Chlamydia: No Tuberculosis: No Syphilis: No Hepatitis: No HIV/AIDS Exposure: No Rash or Viral Illness: No HPV: No PHYSICAL EXAM General: Normal HEENT: Deferred Neurologic: Normal Thyroid: Deferred Heart: Normal Lungs: Normal Breast: Normal Back: Normal Abdomen: Normal Genitourinary Exam: Normal Extremities: Normal DTRs: Normal Pelvic Type: Adequate Physical Exam Comments: pelvis proven to 7lbs 9oz Vital Signs: Reviewed; Within Normal Limits FETUS A EGA: 38.3 Monitoring: External US; Internal Scalp Electrode Variability: Moderate 6-25bpm Decelerations: Late; Variable FHR Category: Category II Presentation: Vertex Admit Comment: Pt is a into L_D for contractions since last night. GBS unknown. Pt. reports being out of town x 1 month. Has not been since November 21. Pt. is A positive, Rubella immune. complicated by anemia and advanced maternal age. Pt. is also an every day smoker also with low TSH on admission at [facility] and normal FT4. GBS culture obtained on admission and pending but first dose administered. Pt. with minimal cervical change but with variables and late decels so it was decided that she would be admitted. Large amount of blood noted on chux after checks and spontaneously. Pt. also reporting constant lower abdominal pain despite relaxed abdomen in between contractions. AROM with small amount of fluid and large clots and blood. IUPC and FSE placed without difficulty. Multiple position changes tried and non-reassuring heart tones continued. Decision was made at that point for patient to proceed to OR for primary and BTL (which she still desires at this point). PLANS FOR LABOR AND DELIVERY Labor and Delivery: None Pain Management: Epidural Feeding Preference: Breast Benefit of Breast Feed Discussed: Yes Circumcision: Yes INFORMED CONSENT Assignment: Cindi Snider MD Signature: with User ID: [email or web address] : with User ID: [email or web address]
[2017-12-30 16:06] LABS: ABSOLUTE EOSINOPHILS # (AUTO) 0.1 10^3/uL (0.0-0.6); ABSOLUTE LYMPHOCYTES (AUTO) 1.5 10^3/uL (0.5-4.7); ABSOLUTE NEUT (AUTO) 20.3 10^3/uL (1.7-8.2); BASOPHILS % (AUTO) 0.2 % (0-2); EOSINOPHILS % (AUTO) 0.2 % (0-6); HEMATOCRIT 34.1 % (36.0-47.0); HEMOGLOBIN 11.3 g/dL (12.0-15.5); LYMPHOCYTES % (AUTO) 6.6 % (13-45); MEAN CORPUSCULAR HEMOGLOBIN 29.9 pg (27.0-33.4); MEAN CORPUSCULAR HGB CONC 33.1 g/dL (32.0-36.0); MEAN CORPUSCULAR VOLUME 90 fl (80-97); MONOCYTES % (AUTO) 4.4 % (3-13); PLATELET COUNT 281 10^3/uL (150-450); RED BLOOD COUNT 3.78 10^6/uL (3.72-5.28); RED CELL DISTRIBUTION WIDTH 15.2 % (11.5-14.0); SEGMENTED NEUTROPHILS % (AUTO) 88.6 % (42-78); TOTAL CELLS COUNTED % (AUTO) 100 %; WHITE BLOOD COUNT 22.9 10^3/uL (4.0-10.5)
[2017-12-30] MEDS ORDERED: OXYCODONE-ACETAMINOPHEN 5-325 MG TABLET PO PRN (17:01)
--- NOTE | 2017-12-30 17:01 | Brief Operative Note ---
BRIEF OPERATIVE REPORT DATE OF SURGERY: 12/30/17 TIME OF SURGERY: 13:25 PREOPERATIVE DIAGNOSIS: , bradycardia, NRFHTs, Active labor, possible abruption POSTOPERATIVE DIAGNOSIS: LEIA - delivered, Right broad ligament hematoma SURGEON: ELEANOR MAYS 1ST REACTOR FUELING SUPERVISOR: VICK CHOE FINDINGS: normal tubes/ovaries, right broad ligament hematoma noted upon making uterine incision, Right broad ligament hematoma stable and not expanding after O ' leary x 2. Dr. Choe also came in for evaluation of of hematoma to confirm stability and there was not evidence of extension into the pelvis. Time of incision 1332, time 1334, weight 5#2oz, Apgars 6/8. IVF 1800ml, Uop 75ml, Cytotec 1000mcg placed per rectum. COMPLICATIONS: Right broad ligament hematoma ESTIMATED BLOOD LOSS: 1309ml TISSUE REMOVED OR ALTERED: placenta and cord sent to pathology TECHNICAL PROCEDURE: Primary section.
[2017-12-30] MEDS ORDERED: CEFAZOLIN 2 GM/D5W RTU 2 GM/50 ML RTUPB IV ONE (18:25)
[2017-12-30] MEDS: DOCUSATE SODIUM 100 MG CAPSULE PO SCH (18:52)
[2017-12-30 19:12] LABS: ABSOLUTE BASOPHILS # (AUTO) 0.1 10^3/uL (0.0-0.2); ABSOLUTE LYMPHOCYTES (AUTO) 1.2 10^3/uL (0.5-4.7); ABSOLUTE MONOCYTES (AUTO) 0.7 10^3/uL (0.1-1.4); ABSOLUTE NEUT (AUTO) 14.9 10^3/uL (1.7-8.2); BASOPHILS % (AUTO) 0.8 % (0-2); EOSINOPHILS % (AUTO) 0.2 % (0-6); HEMATOCRIT 30.4 % (36.0-47.0); HEMOGLOBIN 9.8 g/dL (12.0-15.5); LYMPHOCYTES % (AUTO) 7.3 % (13-45); MEAN CORPUSCULAR HEMOGLOBIN 29.3 pg (27.0-33.4); MEAN CORPUSCULAR HGB CONC 32.3 g/dL (32.0-36.0); MEAN CORPUSCULAR VOLUME 91 fl (80-97); MONOCYTES % (AUTO) 4.3 % (3-13); PLATELET COUNT 268 10^3/uL (150-450); RED BLOOD COUNT 3.35 10^6/uL (3.72-5.28); RED CELL DISTRIBUTION WIDTH 15.7 % (11.5-14.0); SEGMENTED NEUTROPHILS % (AUTO) 87.4 % (42-78); TOTAL CELLS COUNTED % (AUTO) 100 %
[2017-12-30 19:36] LABS: ALANINE AMINOTRANSFERASE 21 U/L (9-52); ALBUMIN 2.6 g/dL (3.5-5.0); ALKALINE PHOSPHATASE 123 U/L (38-126); ANION GAP 10 (5-19); ASPARTATE AMINO TRANSFERASE 26 U/L (14-36); BILIRUBIN,DIRECT 0.3 mg/dL (0.0-0.4); BILIRUBIN,TOTAL 0.8 mg/dL (0.2-1.3); BLOOD UREA NITROGEN 7 mg/dL (7-20); CALCIUM 8.7 mg/dL (8.4-10.2); CARBON DIOXIDE 22 mmol/L (22-30); CHLORIDE 107 mmol/L (98-107); GLUCOSE 122 mg/dL (75-110); POTASSIUM 4.2 mmol/L (3.6-5.0); SODIUM 139.1 mmol/L (137-145); TOTAL PROTEIN 5.2 g/dL (6.3-8.2)
[2017-12-30] MEDS: SIMETHICONE 80 MG TAB.CHEW PO PRN (19:50)
[2017-12-31] MEDS: OXYCODONE-ACETAMINOPHEN 5-325 MG TABLET PO PRN ×5 (00:10→22:06)
[2017-12-31] MEDS: HYDROMORPHONE HCL INJ/PF 2 MG/ML AMPULE IV PRN ×2 (02:45→05:13)
[2017-12-31] MEDS: SIMETHICONE 80 MG TAB.CHEW PO PRN (05:12)
[2017-12-31 07:18] LABS: HEMATOCRIT 24.8 % (36.0-47.0); HEMOGLOBIN 8.2 g/dL (12.0-15.5); MEAN CORPUSCULAR HEMOGLOBIN 29.6 pg (27.0-33.4); MEAN CORPUSCULAR HGB CONC 33.1 g/dL (32.0-36.0); MEAN CORPUSCULAR VOLUME 89 fl (80-97); PLATELET COUNT 239 10^3/uL (150-450); RED BLOOD COUNT 2.77 10^6/uL (3.72-5.28)
--- NOTE | 2017-12-31 08:08 | Delivery Summary ---
Del Sum A-C Datetime Report Generated by CPN: 12/31/2017 08:08 DELIVERY PERSONNEL DELIVERY PERSONNEL: [id number] Delivery Doctor:: Cindi Snider MD Delivery Doctor:: Cindi Snider MD Anesthesiologist:: Bethanie Hernandez MD Anesthesiologist:: Bethanie Hernandez MD V BELT MOLD ASSEMBLER AND CURER:: Dinh Whatley CRNA V BELT MOLD ASSEMBLER AND CURER:: Antwan Aguayo CRNA Labor and Delivery Nurse:: Karie Alexander RN Promotional Marketing Analyst:: Karie Alexander RN Promotional Marketing Analyst:: Karie Alexander RN Respiratory Therapy Technician:: Dr. Antwan Kidd [place] Nurse:: Alee Menendez RN Ob Nurse/INDUSTRIAL MAINTENANCE INSTRUCTOR: Alee Souza CST Ob Nurse/INDUSTRIAL MAINTENANCE INSTRUCTOR: Holly MARRERO Ob Nurse/INDUSTRIAL MAINTENANCE INSTRUCTOR: Lyndsey MORALES CST Ob Nurse/INDUSTRIAL MAINTENANCE INSTRUCTOR: Alee Souza, BULLET CASTING OPERATOR MATERNAL INFORMATION Delivery Anesthesia: General Medications After Delivery: Pitocin Bolus-Please Comment; Other-Please Comment Meds After Delivery Comment: cytotec 1000MCG [place] LABOR SUMMARY EDC: 01/10/2018 00:00 No. Babies in Womb: 1 Attempted: No Labor Anesthesia: None LABOR INFORMATION Reason for Induction: Not Applicable Onset of Labor: 12/30/2017 01:00 Oxytocin: N/A Group B Beta Strep: UNKNOWN Antibiotics # of Doses: 1 Antibiotics Time of Last Dose: 1141 Name of Antibiotic Given: PENICILLIN G Steroids Given: None Reason Steroids Not Administered: Not Applicable MEMBRANES Membranes Rupture Method: Artificial Rupture of Membranes: 12/30/2017 12:41 Length of Rupture (hr): 0.88 Amniotic Fluid Color: Light Meconium Amniotic Fluid Amount: Small STAGES OF LABOR Stage 3 hr: 0 Stage 3 min: 2 Total Time in Labor hr: 12 Total Time in Labor min: 36 CSECTION DELIVERY Primary Indication: Nonreassuring Status CSection Urgency: Emergency CSection Incidence: Primary Labor: Labor CSection Incision: Lower Uterine Transverse Other Sterilization Procedure: FILSHIE CLIPS BABY A INFORMATION Delivery Date/Time: 12/30/2017 13:34 Method of Delivery: Born in Route : No : N/A Forceps: N/A Vacuum Extraction: N/A Shoulder Dystocia : No PRESENTATION/POSITION BABY A Presentation: Cephalic Presentation: Cephalic Presentation: Cephalic Presentation: Cephalic Presentation: Cephalic Presentation: Cephalic Cephalic Presentation: Vertex Breech Presentation: N/A PLACENTA INFORMATION BABY A Placenta Delivery Time : 12/30/2017 13:36 Placenta Method of Delivery: Manual Removal Placenta Status: Delivered SCORES BABY A Heart Rate 1 min: >100 bpm Resp Effort 1 min: Slow, Irregular Reflex Irritability 1 min: Grimace Muscle Tone 1 min: Some Flexion of Extremities Color 1 min: Body [place], Extremities Blue SCORE 1 MIN: 6 Heart Rate 5 min: >100 bpm Resp Effort 5 min: Good Cry Reflex Irritability 5 min: Cough or Sneeze or Pulls Away Muscle Tone 5 min: Active Motion Color 5 min: Blue/Pale SCORE 5 MIN: 8 INFORMATION BABY A Gestational Age at Delivery: 38.3 Gestational Status: Early Term- 37- 38.6 Weeks Infant Outcome : Liveborn Condition : Stable Infant Sex: Male IDENTIFICATION BABY A ID Band Number: [id number] Mother's Name Verified: Yes Infant WEIGHT/LENGTH BABY A Infant Birthweight (gm): 2615 Weight (lb): 5 Weight (oz): 12 Infant Length (in): 19.00 Length (cm): 48.26 CORD INFORMATION BABY A No. Cord Vessels: 3 Nuchal Cord : N/A Cord Blood Taken: Yes-For Storage (Mom's Blood type +) ASSESSMENT BABY A Infant Complications: Extended Bradycardia; Meconium Physical Findings at Delivery: Other Physical Findings- Other: see Nursery Record for assessment Skin to Skin: No Respiratory Therapy Technician/ALS Called : Yes Infant Care By: Dr Kidd BABY B INFORMATION : N/A
[2017-12-31] MEDS: PRENATAL VITAMIN W DHA CAPSULE PO SCH (09:19)
[2017-12-31] MEDS: DOCUSATE SODIUM 100 MG CAPSULE PO SCH ×2 (09:19→17:02)
--- NOTE | 2017-12-31 09:48 | PDOC PROGRESS REPORT ---
Subjective-OB Progress Note for:: 12/31/17 Subjective: Doing well, baby in NICU, eating well, OOB in room, burping, not passing gas Physical Exam (OB) Vital Signs: Temp Pulse Resp BP Pulse Ox 99.2 F 87 18 102/52 L 97 12/31/17 07:23 12/31/17 07:23 12/31/17 07:23 12/31/17 07:23 12/31/17 07:23 Intake & Output 12/30/17 12/31/17 01/01/18 06:59 06:59 06:59 Intake Total 1000 Output Total 700 Balance 300 Weight 61.6 kg - PIH/Pre-Eclampsia DTR's: 2 + Clonus: Negative Headache: Absent Epigastric Pain: No Visual Changes: No - Dressing Removed: Yes Incision: Well Approximated Closure Type: Surgical Glue - Lochia Lochia Amount: Scant < 10 ml Lochia Color: Rubra/Red - Abdomen Description: Tender, Soft Hernia Present: No Fundal Description: Firm, Midline Fundal Height: u/u - u/2 Objective-Diagnostic Laboratory: 12/31/17 06:38 12/30/17 19:05 12/30/17 12/30/17 12/30/17 12:40 12:40 15:50 WBC 9.9 22.9 H D RBC 3.60 L 3.78 Hgb 10.9 L 11.3 L Hct 32.3 L 34.1 L MCV 90 90 MCH 30.3 29.9 MCHC 33.8 33.1 RDW 15.2 H 15.2 H Plt Count 276 281 Seg Neutrophils % 88.6 H Lymphocytes % 6.6 L Monocytes % 4.4 Eosinophils % 0.2 Basophils % 0.2 Absolute Neutrophils 20.3 H Absolute Lymphocytes 1.5 Absolute Monocytes 1.0 Absolute Eosinophils 0.1 Absolute Basophils 0.0 Sodium Potassium Chloride Carbon Dioxide Anion Gap BUN Creatinine Est GFR ( Amer) Est GFR (Non-Af Amer) Glucose Calcium Total Bilirubin AST ALT Alkaline Phosphatase Total Protein Albumin Blood Type A POSITIVE Antibody Screen NEGATIVE 12/30/17 12/30/17 12/31/17 19:05 19:05 06:38 WBC 17.0 H 13.0 H RBC 3.35 L 2.77 L Hgb 9.8 L 8.2 L Hct 30.4 L 24.8 L MCV 91 89 MCH 29.3 29.6 MCHC 32.3 33.1 RDW 15.7 H 15.0 H Plt Count 268 239 Seg Neutrophils % 87.4 H Lymphocytes % 7.3 L Monocytes % 4.3 Eosinophils % 0.2 Basophils % 0.8 Absolute Neutrophils 14.9 H Absolute Lymphocytes 1.2 Absolute Monocytes 0.7 Absolute Eosinophils 0.0 Absolute Basophils 0.1 Sodium 139.1 Potassium 4.2 Chloride 107 Carbon Dioxide 22 Anion Gap 10 BUN 7 Creatinine 0.65 Est GFR ( Amer) > 60 Est GFR (Non-Af Amer) > 60 Glucose 122 H Calcium 8.7 Total Bilirubin 0.8 AST 26 ALT 21 Alkaline Phosphatase 123 Total Protein 5.2 L Albumin 2.6 L Blood Type Antibody Screen Assessment and Plan(PN) - Assessment and Plan (1) Smoker Is this a current diagnosis for this admission?: Yes (2) Advanced maternal age (AMA) in Is this a current diagnosis for this admission?: Yes (3) Delivery by emergency caesarean section Is this a current diagnosis for this admission?: Yes - Time Spent with Patient Time with patient: Less than 15 minutes Medications reviewed and adjusted accordingly: Yes - Disposition Anticipated Discharge: Home Within: within 24 hours
[2018-01-01] MEDS: OXYCODONE-ACETAMINOPHEN 5-325 MG TABLET PO PRN ×5 (03:27→21:23)
--- NOTE | 2018-01-01 09:09 | PDOC PROGRESS REPORT ---
Subjective-OB Progress Note for:: 01/01/18 Subjective: In nursery with baby,, breast/bottle feeding, pain improving, moving slowly Physical Exam (OB) Vital Signs: Temp Pulse Resp BP Pulse Ox 97.8 F 72 20 99/59 L 99 01/01/18 08:14 01/01/18 08:14 01/01/18 08:14 01/01/18 08:14 01/01/18 08:14 Intake & Output 12/31/17 01/01/18 01/02/18 06:59 06:59 06:59 Intake Total 1000 840 Output Total 700 400 Balance 300 440 Weight 61.6 kg - PIH/Pre-Eclampsia DTR's: 2 + Clonus: Negative Headache: Absent Epigastric Pain: No Visual Changes: No - Dressing Removed: No - no dressing present Incision: Well Approximated Closure Type: durmabond - Lochia Lochia Amount: Small 10-25 ml Lochia Color: Rubra/Red - Abdomen Description: Soft, Round Hernia Present: No Fundal Description: Firm, Midline Fundal Height: u/u - u/2 Objective-Diagnostic Laboratory: 12/31/17 06:38 12/30/17 19:05 Assessment and Plan(PN) - Assessment and Plan (1) Smoker Is this a current diagnosis for this admission?: Yes (2) Advanced maternal age (AMA) in Is this a current diagnosis for this admission?: Yes (3) Delivery by emergency caesarean section Is this a current diagnosis for this admission?: Yes - Time Spent with Patient Time with patient: Less than 15 minutes Medications reviewed and adjusted accordingly: Yes - Disposition Anticipated Discharge: Home Within: within 24 hours
[2018-01-01] MEDS: PRENATAL VITAMIN W DHA CAPSULE PO SCH (09:14)
[2018-01-01] MEDS: DOCUSATE SODIUM 100 MG CAPSULE PO SCH (09:14)
[2018-01-01] MEDS: SIMETHICONE 80 MG TAB.CHEW PO PRN (21:24)
[2018-01-02] MEDS: OXYCODONE-ACETAMINOPHEN 5-325 MG TABLET PO PRN ×4 (01:41→15:40)
[2018-01-02] MEDS: PRENATAL VITAMIN W DHA CAPSULE PO SCH (09:49)
[2018-01-02] MEDS: DOCUSATE SODIUM 100 MG CAPSULE PO SCH ×2 (09:49→09:51)
[2018-01-02] MEDS: SIMETHICONE 80 MG TAB.CHEW PO PRN (09:49)
--- NOTE | 2018-01-02 10:37 | PDOC DISCHARGE SUMMARY ---
Final Diagnosis Discharge Date: 01/02/18 - Final Diagnosis (1) Active labor at term Is this a current diagnosis for this admission?: Yes (2) Advanced maternal age (AMA) in Is this a current diagnosis for this admission?: Yes (3) Delivery by emergency caesarean section Is this a current diagnosis for this admission?: Yes (4) Smoker Is this a current diagnosis for this admission?: Yes Discharge Data - Discharge Medication Home Medications: Vit Calc,Iron,Folic [ Vitamins] 1 tab PO DAILY 05/23/17 Reason(s) for Admission: Onset of Labor Procedures: NST, Management of Obstetric Complications Intrapartum Procedure(s): : Low Cervical, Transverse Intrapartum Procedure Note: broad ligament hematoma - Diagnosis Test Laboratory: Temp Pulse Resp BP Pulse Ox 98.0 F 65 16 114/77 97 01/02/18 07:47 01/02/18 07:47 01/02/18 07:47 01/02/18 07:47 01/02/18 07:47 12/30/17 12/30/17 12/30/17 07:50 12:40 15:50 RBC 3.60 L 3.78 Hgb 10.9 L 11.3 L Hct 32.3 L 34.1 L Urine Opiates Screen NEGATIVE 12/30/17 12/31/17 19:05 06:38 RBC 3.35 L 2.77 L Hgb 9.8 L 8.2 L Hct 30.4 L 24.8 L Urine Opiates Screen - Discharge information/Instructions Discharge Activity: Activity As Tolerated, No Lifting Over 10 Pounds, No Lifting /Push/Pulling, Pelvic Rest, No tub bath Discharge Diet: Regular Disposition: HOME, SELF-CARE Follow up with: [facility] in: 4, Days
[2018-01-02 12:38] VITALS: BP 112/68
--- NOTE | 2018-01-03 10:47 | Operative Report ---
Operative Report DATE OF SURGERY: 12/30/17 PREOPERATIVE DIAGNOSIS: , bradycardia, NRFHTs, Active labor, possible abruption POSTOPERATIVE DIAGNOSIS: LEIA - delivered, Right broad ligament hematoma OPERATION: Primary section. SURGEON: ELEANOR MAYS 1ST BANK AND SAVINGS SECURITIES TRADER: VICK NICHOLAS ANESTHESIA: GA TISSUE REMOVED OR ALTERED: placenta and cord sent to pathology COMPLICATIONS: Right broad ligament hematoma ESTIMATED BLOOD LOSS: 1309ml INTRAOPERATIVE FINDINGS: normal tubes/ovaries, right broad ligament hematoma noted upon making uterine incision, Right broad ligament hematoma stable and not expanding after O' leary x 2. Dr. Nicholas also came in for evaluation of of hematoma to confirm stability and there was not evidence of extension into the pelvis. Time of incision 1332, time 1334, weight 5#2oz, Apgars 6/8. IVF 1800ml, Uop 75ml, Cytotec 1000mcg placed per rectum. PROCEDURE: Anesthesia provider: [Mary LUNDBERG, Robbin Lagunas CRNA] Urine output: [75ml] IV fluids: [1800ml] Complications: [None] Specimens: [None] Indications: [37yo at 38+3ega admitted in active labor and began having variable decelerations which ere initially responsive to intrauterine resuscitation then terminal bradycardia noted. Unable to resolve terminal bradycardia and patient consented for emergency section. She desired bilateral tubal ligation and had been consented previously for bilateral tubal ligation. The risks/benefits/alternatives were reviewed and she desired to proceed with Primary section with Bilateral tubal ligation.] Procedure: The patient was taken to the operating room where spinal anesthesia was obtained and found to be adequate. She was then prepped and draped in the normal sterile fashion and placed in the dorsal supine position with a leftward tilt. A Pfannenstiel skin incision was then made and carried through to the underlying layers of the fascia with the scalpel. The fascia was incised in the midline and the incision extended laterally with the Alvares scissors. The superior aspect of the fascial incision was then grasped with Rocky clamps elevated and the underlying rectus muscles dissected off [bluntly]. Attention was then turned to the inferior aspect of the fascial incision which in a similar fashion was grasped, tented up with Suhail clamps, and the rectus muscles dissected off [bluntly]. The rectus muscles were then in the midline and the peritoneum at the amount identified and entered [bluntly]. The peritoneal incision was then extended superiorly and inferiorly with good visualization of the bladder. The bladder blade was inserted and the vesicouterine peritoneum identified grasped with [place] pickups and entered sharply with the Metzenbaum scissors. This incision was then extended laterally with the Metzenbaum scissors and a bladder flap created digitally. The bladder blade was then reinserted and the lower uterine segment incised in a transverse fashion with the scalpel. The uterine incision was then extended bluntly. The bladder blade was removed and the 's head was delivered from cephalic presentation atraumatically. The nose and mouth were suctioned and the cord doubly clamped and cut. And the infant was handed off to waiting pediatricians. The placenta was then delivered spontaneously and the uterus exteriorized and cleared of all clots and debris. The uterine incision was then repaired with 1- 0 Vicryl in a running locked fashion. A second layer of the same suture was used to obtain hemostasis via imbrication of the initial layer. The bladder flap was then repaired with 3-0 chromic in a running fashion. The uterus was returned to the patient's abdomen and Interceed was placed overlying the uterine incision to prevent adhesions. The gutters were cleared of all clots and debris. All operative sites were noted to be hemostatic. The fascia was reapproximated with 0 Vicryl in a running fashion from each lateral edge to the midline. The skin was closed with 3-0 Monocryl in a running subcuticular fashion with overlying Dermabond for additional dressing as well as wound closure. The patient tolerated the procedure well. Sponge lap needle and instrument counts are correct -2. 2 g of Ancef were given prior to skin incision. The patient was taken to the recovery area awake and in stable condition.
== END 2018-01-02 15:47 | disposition home or self-care (01) | DRG 765 ==
LOC: LC 07:46 → LR 12:22 → 2N 17:43
PROVIDERS: ADMIT Student in an Organized Health Care Education/Training Program; ATTEND Student in an Organized Health Care Education/Training Program
PROC: 10D00Z1 Extraction of Products of Conception, Low, Open Approach (ICD-10-PCS; principal; 2017-12-30)
PROC: 0UL70CZ Occlusion of Bilateral Fallopian Tubes with Extraluminal Device, Open Approach (ICD-10-PCS; 2017-12-30)
PROC: 10H073Z Insertion of Monitoring Electrode into Products of Conception, Via Natural or Artificial Opening (ICD-10-PCS; 2017-12-30)
PROC: 4A1HXCZ Monitoring of Products of Conception, Cardiac Rate, External Approach (ICD-10-PCS; 2017-12-30)
PROC: 3E0234Z Introduction of Serum, Toxoid and Vaccine into Muscle, Percutaneous Approach (ICD-10-PCS; 2018-01-02)
DX: O76 Abnormality in fetal heart rate and rhythm complicating labor and delivery (principal); O71.7 Obstetric hematoma of pelvis; O99.334 Smoking (tobacco) complicating childbirth; F17.210 Nicotine dependence, cigarettes, uncomplicated; N83.7 Hematoma of broad ligament; O77.0 Labor and delivery complicated by meconium in amniotic fluid; Z23 Encounter for immunization; Z30.2 Encounter for sterilization; Z3A.38 38 weeks gestation of pregnancy; Z37.0 Single live birth
CPT/HCPCS: 1961; 36415; 74018; 80053; 80307; 81001; 82962; 85025; 85027; 86592; 86850; 86900; 86901; 87081; 87491; 87591; 88307; 90715; 94799; J0131; J0330; J0690; J1170; J2250; J2270; J2405; J2590; J2704; J3010; J3490; J7120